=== PATIENT | female | born 1965 | race Caucasian/White ===

== ENCOUNTER 2017-03-25 05:25 | Emergency (ER) | payer OTHER ==
[~2017-03-25] VITALS: Ht 167.6 cm; Wt 95.3 kg
--- NOTE | 2017-03-25 06:03 | ED NECK/BACK PAIN COMPLAINT ---
History of Present Illness General Chief Complaint: Abdominal Pain/Flank Pain Stated Complaint: LT SIDE ABD PAIN Source: patient, family, old records Exam Limitations: no limitations Vital Signs & Intake/Output Vital Signs & Intake/Output Vital Signs Date Time Temp Pulse Resp B/P B/P Pulse O2 O2 Flow FiO2 Mean Ox Delivery Rate 03/25 0724 97.5 73 18 116/77 97 03/25 0552 98.2 67 18 140/84 97 Room Air Allergies Coded Allergies: Sulfa (Sulfonamide Antibiotics) (hives 03/25/17) NSAIDS (Non-Steroidal Anti-Inflamma (hives 03/25/17) Triage Note: PT WOKE FROM SLEEP WITH LT SIDED ABD/FLANK PAIN NO N,V,D, NO URINARY SX Triage Nurses Notes Reviewed? yes HPI: Patient presents with increasing left flank pain for the past 2 days. Pain worsens whenever she lays down and then decreases whenever she gets up. At its worst the pain is 10 out of 10 when she is up and goes down to a 6 out of 10. There is been no point that the pain has been on. There is no nausea or vomiting. The pain occasionally radiates towards her left groin. The pain is constant. The pain is aching and throbbing in nature. There is no nausea or vomiting. There is no hematuria. Past History Travel History Traveled to [place] past 21 day No Medical History Any Pertinent Medical History? see below for history Neurological: NONE EENT: NONE Cardiovascular: NONE Respiratory: NONE Gastrointestinal: HIATAL HERNIA Hepatic: NONE Renal: NONE Musculoskeletal: chronic back pain Psychiatric: NONE Endocrine: NONE Blood Disorders: NONE Cancer(s): NONE Surgical History Surgical History: non-contributory Psychosocial History What is your primary language [place] Tobacco Use: Never used ETOH Use: occasional use Illicit Drug Use: denies illicit drug use Family History Hx Contributory? No Review of Systems Review of Systems Constitutional: Reports: no symptoms. Eyes: Reports: no symptoms. Ears, Nose, Throat, Mouth: Reports: no symptoms. Respiratory: Reports: no symptoms. Cardiovascular: Reports: no symptoms. Gastrointestinal/Abdominal: Reports: no symptoms. Musculoskeletal: Reports: see HPI, back pain. Skin: Reports: no symptoms. Neurological/Psychological: Reports: no symptoms. All Other Systems: Reviewed and Negative Physical Exam Physical Exam General Appearance: well developed/nourished, mild distress Head: atraumatic Eyes: Bilateral: PERRL, EOMI. Ears, Nose, Throat, Mouth: hearing grossly normal Neck: normal inspection, supple, no midline tenderness Respiratory: normal breath sounds, chest non-tender, no respiratory distress, lungs clear Cardiovascular: regular rate/rhythm, normal peripheral pulses Gastrointestinal: normal bowel sounds, soft, non-tender Back: normal inspection, normal range of motion, muscle spasm Extremities: normal range of motion Neurologic/Psych: awake, alert, oriented x 3, normal mood/affect Skin: intact, normal color, warm/dry Progress Differential Diagnosis: herniated disc, myofascial strain, pyelo/UTI, T/L spine injury, ureterolithiasis Plan of Care: Orders Procedure Date/time Status URINALYSIS 03/25 555 Complete LIPASE 03/25 555 Complete LACTIC ACID 03/25 555 Complete COMPREHENSIVE METABOLIC PANEL 03/25 555 Complete CBC WITHOUT DIFFERENTIAL 03/25 555 Complete AMYLASE 03/25 555 Complete Laboratory Tests 03/25/17 0600: Urinalysis MOD H, Urine Color YEL, Urine Clarity HAZY H, Urine pH 6.0, Ur Specific [place] 1.020, Urine Protein NEG, Urine Ketones NEG, Urine Nitrite NEG, Urine Bilirubin NEG, Urine Urobilinogen 0.2, Ur Leukocyte Esterase SMALL H, Ur Microscopic SEDIMENT EXAMINED, Urine RBC 1-3, Urine WBC 1-3 H, Ur Epithelial Cells MOD H, Urine Bacteria MANY H, Urine Hemoglobin TRACE-INTACT, Urine Glucose NEG 03/25/17 0555: Anion Gap 11, Estimated GFR > 60, BUN/Creatinine Ratio 24.4, Glucose 109 H, Lactic Acid 0.9, Calcium 9.5, Total Bilirubin 1.0, AST 31, ALT 53 H, Alkaline Phosphatase 106, Total Protein 7.5, Albumin 4.4, Globulin 3.1, Albumin/Globulin Ratio 1.4, Amylase 69, Lipase 159, CBC w Diff NO MAN DIFF REQ, RBC 4.37, MCV 91.1, MCH 30.1, RDW 12.8, MPV 8.3, Gran % 50.4, Lymphocytes % 32.1, Monocytes % 6.6, Eosinophils % 10.4 H, Absolute Granulocytes 4.2, Absolute Monocytes 0.6, Absolute Eosinophils 0.9, Absolute Basophils 0, PUBS MCHC 33.1 Diagnostic Imaging: Viewed by Me: CT Scan. Discussed w/RAD: CT Scan. Radiology Impression: PATIENT: ROSA ELENA LIZARRAGA PRESENT AGE: 51 PATIENT ACCOUNT NO: [id number] : 63 LOCATION: [facility] ORDERING PHYSICIAN: TYRA MONTERO MD SERVICE DATE: 03/25/17 EXAM TYPE: CAT - CT ABD & PELVIS W/O IV CONTRAS EXAMINATION: CT ABDOMEN AND PELVIS WITHOUT CONTRAST CLINICAL INFORMATION: Left flank pain. COMPARISON: None TECHNIQUE: Multidetector volumetric imaging was performed from the superior aspect of the liver through the pubic symphysis. Sagittal and coronal reformatted images were obtained on the technologist's workstation. DLP: 867 mGy-cm FINDINGS: LUNG BASES : There are 3 small nodules at the lung bases: 1. Right lower lobe subpleural on series 2 image 5, measuring 3 mm. 2. Left lower lobe subpleural on series 2 image 11, measuring 3 mm. 3. Right lower lobe just above the diaphragm on series 2 image 14, measuring 4 mm. LIVER, GALLBLADDER, AND BILIARY TREE: Fatty infiltration of the liver with some sparing around the sindy hepatis. No ductal dilatation. The gallbladder is unremarkable with no evidence of radiopaque gallstones, gallbladder wall thickening, or obvious pericholecystic inflammatory changes. PANCREAS: Unremarkable. SPLEEN: Unremarkable. ADRENAL GLANDS: Unremarkable. KIDNEYS AND URETERS: The kidneys are normal in size, shape, and attenuation. No hydronephrosis, hydroureter, or calculi seen. No perinephric stranding. BLADDER: Unremarkable. GASTROINTESTINAL TRACT: The small and large bowel are unremarkable. The appendix is unremarkable. ABDOMINAL WALL: No significant hernia is appreciated. LYMPH NODES: Normal. VASCULAR: The abdominal aorta is normal in caliber. PELVIC VISCERA: The uterus and adnexa are unremarkable. No pelvic mass. OSSEOUS STRUCTURES: Vertebral body heights are maintained. There is mild degenerative disc disease at L4-L5 and L5-S1. There is moderate facet arthrosis on the right at L5-S1. IMPRESSION: No acute findings to correlate with left flank pain. Negative for nephrolithiasis. Fatty liver. Incidental sub-6 mm pulmonary nodules at the lung bases. Various management parameters for solitary pulmonary nodules are in the literature. According to the UPDATED 2017 Fleischner Society recommendations, the advised follow-up imaging for solid nodules < 6 mm is: LOW RISK PATIENT: No routine follow-up. HIGH RISK PATIENT: Optional CT at 12 months. Reference: Guidelines for Management of Incidental Pulmonary Nodules Detected on CT Images: From the Fleischner Society 2017. DICTATED BY: MICHAEL CORMIER MD DATE/TIME DICTATED:03/25 ADZ WORKER:RADHA DATE/TIME TRANSCRIBED:03/25/17704 CONFIDENTIAL, DO NOT COPY WITHOUT APPROPRIATE AUTHORIZATION. <Electronically signed in Other Vendor System> SIGNED BY: MICHAEL CORMIER MD 03/25/1715 Departure Departure Disposition: HOME OR SELF CARE Condition: Stable Clinical Impression Primary Impression: Back pain Qualifiers: Back pain location: low back pain Chronicity: acute Back pain laterality: left Sciatica presence: without sciatica Qualified Code: M54.5 - Low back pain Referrals: PATIENT HAS NO PRIMARY CARE DR (PCP/Family) Additional Instructions: USE MOIST HEAT RETURN IF SYMPTOMS WORSEN OR FOR ANY CONCERNS Departure Forms: Customer Survey General Discharge Information Prescriptions: Current Visit Scripts Cyclobenzaprine HCl 1 TAB PO Q8P #20 TAB Oxycodone HCl/Acetaminophen (Percocet 5-325 MG Tablet) 1-2 TAB PO Q6P PRN PAIN #20 TAB
[2017-03-25 06:08] LABS: ABSOLUTE BASOPHIL COUNT 0 /CUMM (0.0-0.2); ABSOLUTE EOSINOPHIL COUNT 0.9 /CUMM (0.0-0.7); ABSOLUTE GRANULOCYTE CT 4.2 /CUMM (1.4-6.5); ABSOLUTE MONOCYTE COUNT 0.6 /CUMM (0.10-0.60); EOSINOPHIL % 10.4 % (0-5); GRANULOCYTE % 50.4 % (42.2-75.2); HEMATOCRIT 39.8 % (37-47); MEAN CORPUSCULAR HGB 30.1 PG (27.0-31.0); MEAN CORPUSCULAR HGB CONC 33.1 G/DL (33.0-37.0); MEAN CORPUSCULAR VOLUME 91.1 FL (81.0-99.0); MEAN PLATELET VOLUME 8.3 FL (7.4-10.4); PLATELET COUNT 299 /CUMM (130-400); RBC DISTRIBUTION WIDTH 12.8 % (11.5-14.5); RED BLOOD CELL CT 4.37 /CUMM (4.20-5.40); WHITE BLOOD CELL COUNT 8.4 /CUMM (4.8-10.8)
--- NOTE | 2017-03-25 07:15 | CT SCAN REPORT ---
EXAMINATION: CT ABDOMEN AND PELVIS WITHOUT CONTRAST CLINICAL INFORMATION: Left flank pain. COMPARISON: None TECHNIQUE: Multidetector volumetric imaging was performed from the superior aspect of the liver through the pubic symphysis. Sagittal and coronal reformatted images were obtained on the technologist's workstation. DLP: 867 mGy-cm FINDINGS: LUNG BASES: There are 3 small nodules at the lung bases: 1. Right lower lobe subpleural on series 2 image 5, measuring 3 mm. 2. Left lower lobe subpleural on series 2 image 11, measuring 3 mm. 3. Right lower lobe just above the diaphragm on series 2 image 14, measuring 4 mm. LIVER, GALLBLADDER, AND BILIARY TREE: Fatty infiltration of the liver with some sparing around the sindy hepatis. No ductal dilatation. The gallbladder is unremarkable with no evidence of radiopaque gallstones, gallbladder wall thickening, or obvious pericholecystic inflammatory changes. PANCREAS: Unremarkable. SPLEEN: Unremarkable. ADRENAL GLANDS: Unremarkable. KIDNEYS AND URETERS: The kidneys are normal in size, shape, and attenuation. No hydronephrosis, hydroureter, or calculi seen. No perinephric stranding. BLADDER: Unremarkable. GASTROINTESTINAL TRACT: The small and large bowel are unremarkable. The appendix is unremarkable. ABDOMINAL WALL: No significant hernia is appreciated. LYMPH NODES: Normal. VASCULAR: The abdominal aorta is normal in caliber. PELVIC VISCERA: The uterus and adnexa are unremarkable. No pelvic mass. OSSEOUS STRUCTURES: Vertebral body heights are maintained. There is mild degenerative disc disease at L4-L5 and L5-S1. There is moderate facet arthrosis on the right at L5-S1. IMPRESSION: No acute findings to correlate with left flank pain. Negative for nephrolithiasis. Fatty liver. Incidental sub-6 mm pulmonary nodules at the lung bases. Various management parameters for solitary pulmonary nodules are in the literature. According to the UPDATED 2017 Fleischner Society recommendations, the advised follow-up imaging for solid nodules < 6 mm is: LOW RISK PATIENT: No routine follow-up. HIGH RISK PATIENT: Optional CT at 12 months. Reference: Guidelines for Management of Incidental Pulmonary Nodules Detected on CT Images: From the Fleischner Society 2017.
[2017-03-25] MEDS ORDERED: CYCLOBENZAPRINE10 M1 PO (07:46)
[2017-03-25] MEDS ORDERED: PERCOCET 5-3251 EACH PO (07:46)
== END 2017-03-25 07:54 ==
LOC: ERH 05:25
PROVIDERS: Emergency Medicine
DX: R10.32 Left lower quadrant pain (principal)
CPT/HCPCS: 74176; 81001